=== PATIENT | female | born 1985 | race Two or more races ===

== ENCOUNTER 2018-11-07 22:03 | Emergency (ER) | payer SELFPAY ==
[2018-11-07 22:14] VITALS: BMI 24.6
--- NOTE | 2018-11-07 23:25 | ED PDOC ---
HPI: General Adult Time Seen by Provider: 11/07/18 22:30 Chief Complaint (Nursing): Weakness/Neurological Deficit Chief Complaint (Provider): Weakness/Neurological Deficit History Per: Patient History/Exam Limitations: no limitations Onset/Duration Of Symptoms: Days (x4) Current Symptoms Are (Timing): Still Present Additional Complaint(s): 33 year old female with no PMHx presents to the ED with intermittent whole body numbness onset x4 days. Patient reports that sometimes numbness is present in right side of face associated right sided headache. She states her numbness has also been present around her mouth and sometimes bilateral hands There is no direct cause or reason for numbness. Patient denies any weakness, fever, vomiting, or diarrhea. currently patient has no numbness or weakness. Patient is currently prescribed abilify and vivitrol for anxiety and psychiatric illness, but patient ran out of medications for 2 days and only refilled medications yesterday. Patients doctor is at [facility]. PMD: none provided Past Medical History Reviewed: Historical Data, Nursing Documentation, Vital Signs Vital Signs: Last Vital Signs Temp 97.9 F 11/07/18 22:13 Pulse 79 11/07/18 22:13 Resp 18 11/07/18 22:13 BP 121/79 11/07/18 22:13 Pulse Ox 100 11/07/18 22:13 - Medical History PMH: No Chronic Diseases - Surgical History Surgical History: Cholecystectomy Other surgeries: D&C - Family History Family History: States: Unknown Family Hx - Social History Current smoker - smoking cessation education provided: No Ex-Smoker (has not smoked in the last 12 months): Yes Alcohol: Social (on weekends) Drugs: Denies - Allergies Allergies/Adverse Reactions: Allergies Allergy/AdvReac Type Severity Reaction Status Date / Time No Known Allergies Allergy Verified 11/07/18 22:13 Review of Systems ROS Statement: Except As Marked, All Systems Reviewed And Found Negative Constitutional: Negative for: Fever, Weakness Gastrointestinal: Negative for: Vomiting, Diarrhea Neurological: Positive for: Numbness, Headache (right sided) Physical Exam - Reviewed Nursing Documentation Reviewed: Yes Vital Signs Reviewed: Yes - Physical Exam Appears: Positive for: Non-toxic, No Acute Distress Head Exam: Positive for: ATRAUMATIC, NORMOCEPHALIC Skin: Positive for: Normal Color, Warm, Dry Eye Exam: Positive for: EOMI, Normal appearance, PERRL ENT: Positive for: Normal ENT Inspection Neck: Positive for: Normal Cardiovascular/Chest: Positive for: Regular Rate, Rhythm. Negative for: Murmur Respiratory: Positive for: Normal Breath Sounds Gastrointestinal/Abdominal: Positive for: Normal Exam, Soft. Negative for: Tenderness Back: Positive for: Normal Inspection Extremity: Positive for: Normal ROM (upper and lower). 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 Negative for: Motor/Sensory Deficits, Facial Power op - Laboratory Results Result Diagrams: 11/07/18 23:25 11/07/18 23:25 - ECG O2 Sat by Pulse Oximetry: 100 (RA) Pulse Ox Interpretation: Normal Medical Decision Making Medical Decision Making: Time: 2313 Plan: pt with parasthesias - symptoms are bilateral, intermittent, not consistent with any stroke pattern. neurological exam normal. pt states parasthesias resolved. --CT head w/o contrast --CMP --Lipase --CBC --Glucose --Urine C&S --desk monitor --UA Time: 1 CT head w/o contrast: FINDINGS: BRAIN No acute intraparenchymal hemorrhage. No mass lesion. No CT evidence for acute territorial infarct. No midline shift or extra-axial collections. VENTRICLES: No hydrocephalus. ORBITS: The orbits are unremarkable. SINUSES AND MASTOIDS: The paranasal sinuses and mastoid air cells are clear. BONES: No fracture. SOFT TISSUES: Unremarkable. IMPRESSION: No acute intracranial abnormality. Time: 37 --Labs reviewed, no clinically significant abnormalities, urine demonstrates small blood but no infection. pt. aware of results. Time: 57 --Patient reports improvement in symptoms, vitals normal, stable gait, patient to be discharged home. Diagnosis paresthesias. pt advised to follow up with neurologist Dr James for further evaluation also recommended that pt follow up with psychiatrist and continue taking psych meds as instructed by her doctor Scribe Attestation: Documented by Pippa Olivier, acting as a scribe for Maye Donohue MD. Provider Scribe Attestation: All medical record entries made by the Scribe were at my direction and personally dictated by me. I have reviewed the chart and agree that the record accurately reflects my personal performance of the history, physical exam, medical decision making, and the department course for this patient. I have also personally directed, reviewed, and agree with the discharge instructions and disposition. Disposition - Clinical Impression Clinical Impression: History of paresthesia - Patient ED Disposition Is Patient to be Admitted: No Counseled Patient/Family Regarding: Studies Performed, Diagnosis, Need For Followup - Disposition Referrals: [facility] [Outside] Magali James MD [Medical Doctor] - Disposition: Routine/Home Disposition Time: 00:58 Condition: IMPROVED Additional Instructions: follow up with your doctor at [facility]/psychiatrist in 2 days return to the ED with any worsening or concerning symptoms Instructions: Paresthesias (DC) Forms: [facility] (Faroese)
[2018-11-07 23:36] LABS: BASO # 0.1 K/uL (0.0-0.2); BASO % 0.8 % (0.0-2.0); EOS # 0.1 K/uL (0.0-0.7); EOS % 1.5 % (0.0-4.0); HEMOGLOBIN 12.3 g/dL (12.0-16.0); LYMPH # 2.8 K/uL (1.0-4.3); MEAN CELL VOLUME 96.6 fl (81.0-99.0); MEAN CORPUSCULAR HEMOGLOBIN 33.1 pg (27.0-31.0); MEAN CORPUSCULAR HGB CONC 34.3 g/dL (33.0-37.0); MEAN PLATELET VOLUME 8.4 fl (7.2-11.7); MONO # 0.8 K/uL (0.0-0.8); NEUT # 3.9 K/uL (1.8-7.0); NEUT % 50.7 % (50.0-75.0); RBC 3.72 Mil/uL (3.80-5.20); WHITE BLOOD COUNT 7.6 K/uL (4.8-10.8)
[2018-11-07 23:44] LABS: ALB/GLOB RATIO 1.4 (1.0-2.1); ALBUMIN 3.9 g/dL (3.5-5.0); ALT/SGPT 23 U/L (9-52); AST/SGOT 20 U/L (14-36); BLOOD UREA NITROGEN 21 mg/dl (7-17); CALCIUM 9.6 mg/dL (8.4-10.2); GFR NON-AFRICAN AMERICAN > 60; LIPASE 194 U/L (23-300)
[2018-11-07 23:55] LABS: SQUAMOUS EPITHIAL 1 /hpf (0-5); URINE BACTERIA RARE (<OCC); URINE BILIRUBIN NEGATIVE (NEGATIVE); URINE BLOOD SMALL (NEGATIVE); URINE CLARITY CLEAR (Clear); URINE COLOR STRAW (YELLOW); URINE GLUCOSE (UA) NEG (NEGATIVE); URINE LEUKOCYTE ESTERASE NEG Leu/uL (Negative); URINE PROTEIN NEGATIVE (NEGATIVE); URINE UROBILINOGEN 0.2-1.0 mg/dL (0.2-1.0)
[2018-11-08 01:37] VITALS: BP 100/63; PULSE 64; RESP 16; TEMP 98.1
[2018-11-08 02:54] VITALS: O2SAT 100
--- NOTE | 2018-11-08 09:09 | CT ---
Date of service: 11/07/2018 PROCEDURE: CT HEAD WITHOUT CONTRAST. HISTORY: parasthesia COMPARISON: None available. TECHNIQUE: Axial computed tomography images were obtained through the head/brain without intravenous contrast. Radiation dose: Total exam DLP = 846.36 mGy-cm. This CT exam was performed using one or more of the following dose reduction techniques: Automated exposure control, adjustment of the mA and/or kV according to patient size, and/or use of iterative reconstruction technique. FINDINGS: HEMORRHAGE: No intracranial hemorrhage. BRAIN: Normal coats-white matter differentiation and density are appreciated throughout the cerebrum and cerebellum with the brainstem appearing unremarkable as well. There is no mass effect. There is no suspicious extra-axial fluid collection and the midline brain anatomy appears diffusely unremarkable. VENTRICLES: Unremarkable. No hydrocephalus. CALVARIUM: Unremarkable. PARANASAL SINUSES: Trace left ethmoid sinusitis noted. MASTOID AIR CELLS: Unremarkable as visualized. No inflammatory changes. OTHER FINDINGS: None. IMPRESSION: Unremarkable unenhanced head CT. Concordant preliminary report from [place], 11/08/2018, 12:02 a.m..
== END 2018-11-08 01:25 | disposition home or self-care (01) ==
LOC: H.ER 22:03
DX: R20.2 Paresthesia of skin (principal); F41.9 Anxiety disorder, unspecified